=== PATIENT | male | born 1970 | race Caucasian/White ===

== ENCOUNTER 2024-08-22 07:40 | Day surgery (SDC) | payer OTHER ==
[~2024-08-22 07:40] MED LIST: VALSARTAN160 MG; VITAMINS
[2024-08-22] MEDS ORDERED: POVIDONE-IODINE 118 ML BOTT TOP SCH (14:45)
[2024-08-22] MEDS ORDERED: levoFLOXacin IN DEXTROSE 5 % 5 MG/ML PIGGYBAG IV SCH (14:45)
[2024-08-22] MEDS ORDERED: BUPIVACAINE HCL 30 ML VIAL IJ SCH (14:45)
[2024-08-22] MEDS ORDERED: BUPIVACAINE LIPOSOME/PF 266 MG/20 ML VIAL IJ SCH (14:45)
[2024-08-22] MEDS ORDERED: METRONIDAZOLE/SODIUM CHLORIDE 500 MG/100 ML PIGGYBACK IV SCH (14:45)
== END 2024-08-22 19:30 | disposition home or self-care (01) ==
LOC: CIR.AMB 07:40
PROVIDERS: ATTEND Colon & Rectal Surgery
DX: K64.2 Third degree hemorrhoids (principal); K64.4 Residual hemorrhoidal skin tags